=== PATIENT | female | born 2000 | race African-American/Black ===

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

== ENCOUNTER 2019-03-27 17:36 | Emergency (ER) | payer OTHER ==
[~2019-03-27] VITALS: Ht 170.2 cm; Wt 59.5 kg
[2019-03-27] MEDS ORDERED: FERR325T18 PO (17:41)
[2019-03-27] MEDS ORDERED: PREN27TA3 PO (17:41)
[2019-03-27] MEDS ORDERED: METAL LOCK LOOP XX ONE (17:53)
[2019-03-27 18:25] LABS: BASO % 0.3 % (0.0-1.0); EOS % 0.7 % (0.0-3.0); HEMATOCRIT 36.1 % (36.0-47.0); HEMOGLOBIN 11.2 g/dl (12.0-15.5); LYMPH # 2.5 10^3/uL (1.5-5.0); LYMPH % 41.3 % (24.0-44.0); MEAN CORPUSCULAR HEMOGLOBIN 27.9 pg (27.0-33.0); MONO # 0.3 10^3/uL (0.0-0.8); MONO % 5.6 % (0.0-5.0); NEUTROPHILS # 3.2 10^3/uL (1.5-8.5); NEUTROPHILS % 51.9 % (36.0-66.0); PLATELET COUNT, AUTOMATED 272 10^3/uL (150-450); RED BLOOD COUNT 4.01 10^6/uL (4.00-5.40); WHITE BLOOD COUNT 6.1 10^3/uL (4.0-10.0)
[2019-03-27 18:48] LABS: BLOOD UREA NITROGEN 8 MG/DL (7-18); CALCIUM LEVEL 9.4 MG/DL (8.5-10.1); CARBON DIOXIDE LEVEL 27 MEQ/L (21-32); CHLORIDE LEVEL 108 MEQ/L (98-107); CREATININE FOR GFR 0.75 MG/DL (0.55-1.30); GLUCOSE, FASTING 104 MG/DL (70-100); POTASSIUM SERUM 3.4 MEQ/L (3.5-5.1); SODIUM LEVEL 141 MEQ/L (136-145)
[2019-03-27 20:50] VITALS: BP 114/67
--- NOTE | 2019-03-27 21:12 | REPVR ---
EXAM: US Pelvis Complete, Transabdominal EXAM DATE/TIME: 03/27/2019 8:24 PM CLINICAL HISTORY: 19 years old, female; Pelvic pain; Additional info: Otoniel pelvic pain TECHNIQUE: Imaging protocol: Real-time transabdominal pelvic ultrasound with image documentation. Complete exam. COMPARISON: No relevant prior studies available. FINDINGS: Uterus/cervix: The uterus measures approximately 8 CM in length by 4 CM in AP dimension by 5.5 CM in transverse dimension. The endometrium is thickened at 2 CM and probably secretory endometrium. 1 cm area of irregularity at the central portion of the endometrium. Recommend followup ultrasound at 2-3 cycles to ensure that the endometrium returns to normal/thin endometrial stripe. Right adnexa: The right ovary measures 3.6 CM in length by 1.9 CM in thickness. There is vascular flow the right ovary with no evidence of torsion. Left adnexa: The left ovary measures 2.8 CM in length by 2 CM in thickness. There is vascular flow of the left ovary with no evidence of torsion. Small follicular cysts are identified. Free fluid: There is trace free fluid in the pelvis. Bladder: Normal appearing urinary bladder. IMPRESSION: 1. Normal appearing ovaries with no evidence of torsion. 2. Thickening of the endometrium probably secretory type endometrium. 1 cm area of irregularity within the endometrium probably a small area of blood, recommend followup exam after 2-3 cycles to ensure that the endometrium returns to normal. 3. Trace fluid in the pelvis. Electronically signed by: Jomar Lovelace On 03/27/2019 21:12:09 PM
[2019-03-27 21:17] LABS: CHLAMYDIA DNA AMPLIFICATION NEGATIVE (NEGATIVE); GC DNA AMPLIFICATION NEGATIVE (NEGATIVE)
[2019-03-27] MEDS ORDERED: FLAG500T PO (21:24)
--- NOTE | 2019-04-05 13:20 | ED PDOC ---
Post-Departure Follow-Up ft chelsea camara faxed formal report of pelvic us for fu Jeff Zamorano MD Apr 05, 2019 13:20
== END 2019-03-27 21:36 | disposition home or self-care (01) ==
LOC: M ED 17:36
DX: N93.8 Other specified abnormal uterine and vaginal bleeding (principal); R93.89 Abnormal findings on diagnostic imaging of other specified body structures; D64.9 Anemia, unspecified; Z87.42 Personal history of other diseases of the female genital tract

== ENCOUNTER → 2019-04-26 | Outpatient (CLI) | payer OTHER ==
[~2019-04-26] MED LIST: FERR325T18 PO; FLAG500T PO; PREN27TA3 PO
[2019-04-26 12:03] LABS: APPEARANCE, URINE MANUAL HAZY (CLEAR); BILIRUBIN, URINE MANUAL NEGATIVE (NEGATIVE); BLOOD URINE MANUAL POSITIVE (NEGATIVE); COLOR, URINE MANUAL YELLOW (YELLOW); GLUCOSE, URINE (UA) MANUAL NEGATIVE (NEGATIVE); KETONE, URINE MANUAL NEGATIVE (NEGATIVE); NITRITE, URINE MANUAL NEGATIVE (NEGATIVE); PROTEIN, URINE MANUAL TRACE mg/dL (NEGATIVE); SPECIFIC GRAVITY,URINE MANUAL 1.015 (1.002-1.035); UROBILINOGEN, URINE MANUAL NORMAL (NORMAL)
[2019-04-26 12:06] LABS: LEUKOCYTE ESTERASE, URINE MAN TRACE (NEGATIVE)
[2019-04-26 12:07] LABS: AMORPHOUS SEDIMENT, URINE SMALL AMOUNT (NEGATIVE); BACTERIA, URINE NONE SEEN; HYALINE CAST, URINE NONE SEEN /lpf (0-1); SQUAMOUS EPITHELIAL CELL URINE SMALL AMOUNT /hpf (SMALL AMT)
[2019-04-26 13:57] LABS: CHLAMYDIA DNA AMPLIFICATION NEGATIVE (NEGATIVE); GC DNA AMPLIFICATION NEGATIVE (NEGATIVE)
== END ==
LOC: M LAB 10:45
PROVIDERS: ATTEND Obstetrics & Gynecology
DX: N93.9 Abnormal uterine and vaginal bleeding, unspecified (principal)

== ENCOUNTER 2019-05-11 20:50 | Emergency (ER) | payer OTHER ==
[2019-05-11] MEDS ORDERED: AMMONIA AROMATIC INHALANT (FLOOR STOCK) As Ordered ONE (22:34)
== END 2019-05-12 16:26 | disposition left against medical advice (07) ==
LOC: M ED 21:27
DX: Z53.21 Procedure and treatment not carried out due to patient leaving prior to being seen by health care provider (principal)

== ENCOUNTER 2020-01-02 15:37 | Emergency (ER) | payer OTHER ==
[~2020-01-02] VITALS: Ht 170.2 cm; Wt 62.2 kg
[~2020-01-02 15:37] MED LIST changes: -DEPO150I; -IBUP-1022 PO
[2020-01-02] MEDS ORDERED: DEPO150I (15:44)
[2020-01-02] MEDS ORDERED: IBUP-1022 PO (17:03)
[2020-01-02 17:15] VITALS: BP 113/74
== END 2020-01-02 17:17 | disposition home or self-care (01) ==
LOC: M ED 15:37
DX: N93.8 Other specified abnormal uterine and vaginal bleeding (principal); N94.10 Unspecified dyspareunia; R10.2 Pelvic and perineal pain

== ENCOUNTER → 2020-01-02 | Outpatient (CLI) | payer OTHER ==
[~2020-01-02] MED LIST changes: +DEPO150I; +IBUP-1022 PO
--- NOTE | 2020-01-03 08:50 | REP ---
Clinical: Irregular menstrual cycles. Menorrhagia. Technique: Transabdominal pelvic ultrasound followed by transvaginal examination for better evaluation of the endometrium and adnexa. Findings: Bladder is normal and measures approximately 9.3 x 7.3 x 8.0 cm. Normal anteverted uterus measures 6.2 x 4.0 x 4.6 cm. Endometrial complex measures 8 mm thickness. No discrete uterine or endometrial abnormalities appreciated. Right ovary not visualized. Left ovary appears normal and measures 2.1 x 1.8 x 2.0 cm. No pelvic fluid or adnexal mass lesion. Impression: Normal uterus and left ovary. Right ovary not visualized.
== END ==
LOC: M WHC 15:06
PROVIDERS: ATTEND Obstetrics & Gynecology
DX: N92.6 Irregular menstruation, unspecified (principal); N93.8 Other specified abnormal uterine and vaginal bleeding; N94.10 Unspecified dyspareunia; R10.2 Pelvic and perineal pain

== ENCOUNTER 2020-02-03 12:57 | Emergency (ER) | payer OTHER ==
[~2020-02-03] VITALS: Ht 170.2 cm; Wt 62.8 kg
[~2020-02-03 12:57] MED LIST changes: +DEPO150I; +IBUP-1022 PO
[2020-02-03 15:12] LABS: BASO % 0.5 % (0.0-1.0); HEMATOCRIT 39.8 % (36.0-47.0); HEMOGLOBIN 12.4 g/dl (12.0-15.5); LYMPH # 1.2 10^3/uL (1.5-5.0); LYMPH % 32.6 % (24.0-44.0); MEAN CORPUSCULAR HEMOGLOBIN 27.7 pg (27.0-33.0); MEAN CORPUSCULAR HGB CONC 31.2 g/dl (32.0-36.5); MONO # 0.6 10^3/uL (0.0-0.8); MONO % 15.4 % (0.0-5.0); NEUTROPHILS # 1.9 10^3/uL (1.5-8.5); NEUTROPHILS % 51.2 % (36.0-66.0); PLATELET COUNT, AUTOMATED 234 10^3/uL (150-450); RED BLOOD COUNT 4.47 10^6/uL (4.00-5.40); WHITE BLOOD COUNT 3.8 10^3/uL (4.0-10.0)
[2020-02-03 15:34] LABS: ALBUMIN 3.7 GM/DL (3.2-5.2); ALT/SGPT 14 U/L (12-78); BILIRUBIN,DIRECT 0.1 MG/DL (0.0-0.2); BILIRUBIN,TOTAL 0.4 MG/DL (0.2-1.0); BLOOD UREA NITROGEN 9 MG/DL (7-18); CALCIUM LEVEL 9.1 MG/DL (8.5-10.1); CARBON DIOXIDE LEVEL 27 MEQ/L (21-32); CHLORIDE LEVEL 106 MEQ/L (98-107); CREATININE FOR GFR 0.95 MG/DL (0.55-1.30); GLUCOSE, FASTING 91 MG/DL (70-100); LIPASE 76 U/L (73-393); POTASSIUM SERUM 3.5 MEQ/L (3.5-5.1); SODIUM LEVEL 142 MEQ/L (136-145); TOTAL PROTEIN 7.4 GM/DL (6.4-8.2)
[2020-02-03 15:36] LABS: HCG, SERUM QUALITATIVE NEGATIVE (NEGATIVE)
[2020-02-03] MEDS ORDERED: AUGM875T28 PO (16:04)
[2020-02-03 16:12] VITALS: BP 118/71
== END 2020-02-03 16:17 | disposition home or self-care (01) ==
LOC: M ED 12:57
DX: J02.0 Streptococcal pharyngitis (principal); N93.8 Other specified abnormal uterine and vaginal bleeding; M54.9 Dorsalgia, unspecified; G89.29 Other chronic pain; Z79.3 Long term (current) use of hormonal contraceptives; Z87.42 Personal history of other diseases of the female genital tract; Z86.19 Personal history of other infectious and parasitic diseases; Z87.19 Personal history of other diseases of the digestive system

== ENCOUNTER 2020-08-16 12:36 | Emergency (ER) | payer OTHER ==
[~2020-08-16] VITALS: Ht 170.2 cm; Wt 63.6 kg
[~2020-08-16 12:36] MED LIST changes: +AUGM875T28 PO
--- OUTSIDE RECORDS SUMMARY | 2020-08-16 13:11 | CCD ---
Author Author [facility] Organization [facility] Address Unknown Phone Unavailable Support Name Relationship Address Phone CHRISTINA Next Of Kin [address] [place], [place] [id number] UE Next Of Kin Unknown Unavailable STEVEN SCHMIDT Next Of Kin [address] [address] steven schmidt [place] [address] [place] [address] Unavailable Re-disclosure Warning The records that you are about to access may contain information from federally-assisted alcohol or drug abuse programs. If such information is present, then the following federally mandated warning applies: This information has been disclosed to you from records protected by federal confidentiality rules (42 CFR part 2). The federal rules prohibit you from making any further disclosure of this information unless further disclosure is expressly permitted by the written consent of the person to whom it pertains or as otherwise permitted by 42 CFR part 2. A general authorization for the release of medical or other information is NOT sufficient for this purpose. The Federal rules restrict any use of the information to criminally investigate or prosecute any alcohol or drug abuse patient.The records that you are about to access may contain highly sensitive health information, the redisclosure of which is protected by Article 27-F of the [facility] Public Health law. If you continue you may have access to information: Regarding HIV / AIDS; Provided by facilities licensed or operated by the [facility] Office of Mental Health; or Provided by the [facility] Office for People With Developmental Disabilities. If such information is present, then the following [facility] mandated warning applies: This information has been disclosed to you from confidential records which are protected by state law. State law prohibits you from making any further disclosure of this information without the specific written consent of the person to whom it pertains, or as otherwise permitted by law. Any unauthorized further disclosure in violation of state law may result in a fine or long term sentence or both. A general authorization for the release of medical or other information is NOT sufficient authorization for further disc losure. Encounters Encounter Providers Location Date Indications Data Source(s ) Outpatient [address] [facility], [facility] [address] 02/05/2020 12:00:00 AM EDT eCW1 ([facility]) Medications Medication Brand Name Start Date Product Form Dose Route Admi nistrative Instructions Pharmacy Instructions Status Indications Reaction Description Data Source(s) Prednisone 10 MG Oral Tablet PredniSONE 10 MG PredniSONE 10 MG 02/05/2020 12:00:00 AM EDT 3.0 {tablets} active P redniSONE 10 MG eCW1 ([facility]) Insurance Providers Payer name Policy type / Coverage type Policy ID Covered alliance party ID Covered alliance party's relationship to ibarra Policy Ibarra Plan Information [facility] [id number] HU2 [id number] [facility]P [id number] 01 [id number] Problems, Conditions, and Diagnoses Code Display Name Description Problem Type Effective Dates Data Source(s) K05.10 [id number] Gingivitis Problem 02/05/2020 12:00:00 AM ED T eCW1 ([facility]) Vital Signs ID Date Data Source UNK Name Value Range Interpretation Code Description Data Source(s) Diastolic blood pressure 76 mm[Hg] 76 mm[Hg] eCW1 ([facility]) Systolic blood pressure 121 mm[Hg] 121 mm[Hg] e CW1 ([facility]) Body temperature 98.6 [degF] 98.6 [degF] eCW1 ( [facility]) Respiratory rate 16 /min 16 /min eCW1 ([facility]) Heart rate 99 /min 99 /min eCW1 ([facility]) Body mass index (BMI) [Ratio] 21.14 kg/m2 21.14 kg/m2 W1 ([facility]) Body height 67 [in_i] 67 [in_i] eCW1 ([facility]) Body weight 135 [lb_av] 135 [lb_av] eCW1 ([facility]) Patient Treatment Plan of Care Planned Activity Planned Date Details Description Data Source (s) Prednisone 10 MG Oral Tablet 02/05/2020 12:00:00 AM EDT eCW1 ([facility])
--- OUTSIDE RECORDS SUMMARY | 2020-08-16 13:13 | CCD ---
Author Author [facility] Address Unknown Phone Unavailable Support Name Relationship Address Phone CHRISTINA Next Of Kin [address] [place], [place] [phone] UE Next Of Kin Unknown Unavailable ROXANA STEVEN Next Of Kin [address] [place] [address] steven schmidt [place] [address] [place] [address] Unavailable Re-disclosure Warning The records that you [...] is protected by Article 27-F of the [facility] Public Health law. If you continue you may have access to information: Regarding HIV / AIDS; Provided by facilities licensed or operated by the [facility] Office of Mental Health; or Provided by the [facility] Office for People With Developmental Disabilities. If such information is present, then the following [facility] mandated warning applies: This information has [...] law may result in a fine or senior care sentence or both. A general authorization for the release of medical or other information is NOT sufficient authorization for further disc losure. Encounters Encounter Providers Location Date Indications Data Source(s ) Out[place] [address] [facility] [address] 02/05/2020 12:00:00 AM EDT eCW1 ([facility]) Medications Medication Brand Name Start Date Product Form Dose Route Admi nistrative Instructions Pharmacy Instructions Status Indications Reaction Description Data Source(s) Prednisone 10 MG Oral Tablet PredniSONE 10 MG PredniSONE 10 MG 02/05/2020 12:00:00 AM EDT 3.0 {tablets} active P redniSONE 10 MG eCW1 ([facility]) Insurance Providers Payer name Policy type / Coverage type Policy ID Covered republican ID Covered republican's relationship to ibarra Policy Ibarra Plan Information [facility] [id number] HU2 [id number] [facility] O[facility]P [id number] 01 [id number] Problems, Conditions, and Diagnoses Code Display Name Description Problem Type Effective Dates Data Source(s) K05.10 [id number] Gingivitis Problem 02/05/2020 12:00:00 AM ED T eCW1 ([facility]) Vital Signs ID Date Data Source UNK Name Value Range Interpretation Code Description Data Source(s) Diastolic blood pressure 76 mm[Hg] 76 mm[Hg] eCW1 ([facility]) Systolic blood pressure 121 mm[Hg] 121 mm[Hg] e CW1 ([facility]) Body temperature 98.6 [degF] 98.6 [degF] eCW1 ( [facility]) Respiratory rate 16 /min 16 /min [facility] Heart rate 99 /min 99 /min eCW1 ([facility]) Body mass index (BMI) [Ratio] 21.14 kg/m2 21.14 kg/m2 W1 ([facility]) Body height 67 [in_i] 67 [in_i] eCW1 ([facility]) Body weight 135 [lb_av] 135 [lb_av] eCW1 ([facility]) Patient Treatment Plan of Care Planned Activity Planned Date Details Description Data Source (s) Prednisone 10 MG Oral Tablet 02/05/2020 12:00:00 AM EDT eCW1 ([facility])
[2020-08-16 14:04] LABS: BASO % 0.8 % (0.0-1.0); EOS # 0.1 10^3/uL (0.0-0.5); EOS % 0.9 % (0.0-3.0); HEMATOCRIT 39.2 % (36.0-47.0); HEMOGLOBIN 12.3 g/dl (12.0-15.5); LYMPH # 2.2 10^3/uL (1.5-5.0); LYMPH % 40.9 % (24.0-44.0); MEAN CORPUSCULAR HEMOGLOBIN 28.5 pg (27.0-33.0); MEAN CORPUSCULAR HGB CONC 31.4 g/dl (32.0-36.5); MEAN CORPUSCULAR VOLUME 90.7 fl (80.0-96.0); MONO # 0.3 10^3/uL (0.0-0.8); MONO % 5.8 % (0.0-5.0); NEUTROPHILS # 2.7 10^3/uL (1.5-8.5); NEUTROPHILS % 51.2 % (36.0-66.0); PLATELET COUNT, AUTOMATED 263 10^3/uL (150-450); RED BLOOD COUNT 4.32 10^6/uL (4.00-5.40); WHITE BLOOD COUNT 5.3 10^3/uL (4.0-10.0)
[2020-08-16 14:29] LABS: HCG, SERUM QUALITATIVE NEGATIVE (NEGATIVE)
[2020-08-16 14:30] LABS: ALT/SGPT 14 U/L (12-78); BILIRUBIN,DIRECT < 0.1 MG/DL (0.0-0.2); BILIRUBIN,TOTAL 0.3 MG/DL (0.2-1.0); LIPASE 86 U/L (73-393); TOTAL PROTEIN 7.2 GM/DL (6.4-8.2)
--- NOTE | 2020-08-16 15:25 | REP ---
INDICATION: abdominal pain. COMPARISON: None. TECHNIQUE: Single view supine abdomen. KUB. FINDINGS: Bowel gas pattern is normal. Flank stripes and psoas margins are symmetric. There is no evidence of mass, organomegaly, or pathologic calcification. No bony abnormality is seen. IMPRESSION: Negative KUB. <Electronically signed by Terry Bernal > 08/16/20 [id number]
--- NOTE | 2020-08-16 15:52 | REP ---
INDICATION: left sided lower abdominal pain/ Hx ovarian cyst. COMPARISON: Comparison sonography January 02, 2020.. TECHNIQUE: Transabdominal scanning was performed. The patient declined transvaginal imaging. FINDINGS: Uterine dimensions are normal at 6.7 x 3.3 x 5.2 cm. Endometrial echo is 0.9 cm thick and centrally placed. No free fluid is seen in the cul-de-sac. Visualized bladder baez are smooth. There is a small quantity of fluid adjacent to the right ovary. The right ovary has dimensions of 3.3 x 2.5 x 2.3 cm. It's Doppler flow is normal with a resistive index of 0.56. There is a 2.0 x 1.5 x 1.7 cm cyst within the right ovary. The left ovary was obscured by bowel gas. No left adnexal mass is seen.. IMPRESSION: 2.0 cm follicle cyst right ovary. Left ovary was not seen due to bowel gas. Normal uterus. A small quantity of fluid consistent with physiologic fluid is seen.. <Electronically signed by Terry Bernal > 08/16/20 [id number]
[2020-08-16 16:50] VITALS: BP 149/73
== END 2020-08-16 16:50 | disposition home or self-care (01) ==
LOC: M ED 12:36
DX: K59.00 Constipation, unspecified (principal); N83.209 Unspecified ovarian cyst, unspecified side

== ENCOUNTER 2020-09-08 15:23 | Emergency (ER) | payer OTHER ==
[~2020-09-08] VITALS: Ht 170.2 cm; Wt 67.4 kg
[2020-09-08 15:24] VITALS: BP 109/58
--- OUTSIDE RECORDS SUMMARY | 2020-09-08 15:30 | CCD ---
Author Author [facility] Address Unknown Phone Unavailable Support Name Relationship Address Phone CHRISTINA Next Of Kin [address] [place], [place] [phone] UE Next Of Kin Unknown Unavailable ROXANA STEVEN Next Of Kin [address] [place] [address] steven schmidt [facility] [address] [place] [address] Unavailable Re-disclosure Warning The records that you [...] is protected by Article 27-F of the [facility] Public Health law. If you continue you may have access to information: Regarding HIV / AIDS; Provided by facilities licensed or operated by the [facility] Office of Mental Health; or Provided by the [facility] Office for People With Developmental Disabilities. If such information is present, then the following [facility] mandated warning applies: This information has [...] Date Indications Data Source(s ) Outpatient [address] [facility] [address] 02/05/2020 12:00:00 AM EDT eCW1 ([facility]) Medications Medication Brand Name Start Date Product Form Dose Route Admi nistrative Instructions Pharmacy Instructions Status Indications Reaction Description Data Source(s) Prednisone 10 MG Oral Tablet PredniSONE 10 MG PredniSONE 10 MG 02/05/2020 12:00:00 AM EDT 3.0 {tablets} active P redniSONE 10 MG eCW1 ([facility]) Insurance Providers Payer name Policy type / Coverage type Policy ID Covered green party ID Covered green party's relationship to ibarra Policy Ibarra Plan Information [facility] [id number] HU2 [id number] [facility] [id number] 01 [id number] Problems, Conditions, and Diagnoses Code Display Name Description Problem Type Effective Dates Data Source(s) K05.10 [id number] Gingivitis Problem 02/05/2020 12:00:00 AM ED T eCW1 ([facility]) Vital Signs ID Date Data Source UNK Name Value Range Interpretation Code Description Data Source(s) Diastolic blood pressure 76 mm[Hg] 76 mm[Hg] eCW1 ([facility]) Systolic blood pressure 121 mm[Hg] 121 mm[Hg] e CW1 ([facility]) Body temperature 98.6 [degF] 98.6 [degF] eCW1 ( [facility]) Respiratory rate 16 /min 16 /min eCW1 ([facility]) Heart rate 99 /min 99 /min eCW1 ([facility]) Body mass index (BMI) [Ratio] 21.14 kg/m2 21.14 kg/m2 W1 ([facility]) Body height 67 [in_i] 67 [in_i] eCW1 ([facility]) Body weight 135 [lb_av] 135 [lb_av] eCW1 ([facility]) Patient Treatment Plan of Care Planned Activity Planned Date Details Description Data Source (s) Prednisone 10 MG Oral Tablet 02/05/2020 12:00:00 AM EDT eCW1 ([facility])
--- OUTSIDE RECORDS SUMMARY | 2020-09-08 15:55 | CCD ---
Author Author [facility] Address Unknown Phone Unavailable Support Name Relationship Address Phone CHRISTINA Next Of Kin [address] [place], [place] [phone] UE Next Of Kin Unknown Unavailable ROXANA STEVEN Next Of Kin [address] [place] [address] steven schmidt [facility] [address] [place] [address] Unavailable Re-disclosure Warning The records that you [...] is protected by Article 27-F of the [facility] Public Health law. If you continue you may have access to information: Regarding HIV / AIDS; Provided by facilities licensed or operated by the [facility] Office of Mental Health; or Provided by the [facility] Office for People With Developmental Disabilities. If such information is present, then the following [facility] mandated warning applies: This information has [...] law may result in a fine or nursing home sentence or both. A general authorization for the release of medical or other information is NOT sufficient authorization for further disc losure. Encounters Encounter Providers Location Date Indications Data Source(s ) [place] [address] [facility] [address] 02/05/2020 12:00:00 AM EDT eCW1 ([facility]) Medications Medication Brand Name Start Date Product Form Dose Route Admi nistrative Instructions Pharmacy Instructions Status Indications Reaction Description Data Source(s) Prednisone 10 MG Oral Tablet PredniSONE 10 MG PredniSONE 10 MG 02/05/2020 12:00:00 AM EDT 3.0 {tablets} active P redniSONE 10 MG eCW1 ([facility]) Insurance Providers Payer name Policy type / Coverage type Policy ID Covered republican ID Covered republican's relationship to ibarra Policy Ibarra Plan Information [facility] [id number] HU2 [id number] [facility] - O[facility]P [id number] 01 [id number] Problems, Conditions, and Diagnoses Code Display Name Description Problem Type Effective Dates Data Source(s) K05.10 [id number] Gingivitis Problem 02/05/2020 12:00:00 AM ED T eCW1 ([facility]) Vital Signs ID Date Data Source UNK Name Value Range Interpretation Code Description Data Source(s) Diastolic blood pressure 76 mm[Hg] 76 mm[Hg] eCW1 ([facility]) Systolic blood pressure 121 mm[Hg] 121 mm[Hg] e CW1 ([facility]) Body temperature 98.6 [degF] 98.6 [degF] eCW1 ( [facility]) Respiratory rate 16 /min 16 /min eCW1 ([facility]) Heart rate 99 /min 99 /min eCW1 ([facility]) Body mass index (BMI) [Ratio] 21.14 kg/m2 21.14 kg/m2 W1 ([facility]) Body height 67 [in_i] 67 [in_i] eCW1 ([facility]) Body weight 135 [lb_av] 135 [lb_av] eCW1 ([facility]) Patient Treatment Plan of Care Planned Activity Planned Date Details Description Data Source (s) Prednisone 10 MG Oral Tablet 02/05/2020 12:00:00 AM EDT eCW1 ([facility])
== END 2020-09-08 15:59 | disposition home or self-care (01) ==
LOC: M ED 15:23
DX: J35.8 Other chronic diseases of tonsils and adenoids (principal)